=== PATIENT | female | born 1955 | race Caucasian/White ===

== ENCOUNTER 2022-12-28 13:46 | Emergency (ER) | payer MEDICARE, BC ==
[~2022-12-28] VITALS: Ht 162.6 cm; Wt 63.6 kg
[2022-12-28] MEDS ORDERED: ISOVUE-370 76% 100ML VIAL As Ordered ONE (19:00)
[2022-12-28] MEDS ORDERED: NS 1,000 ML IV ONE (19:00)
[2022-12-28 19:31] LABS: BASO # 0.1 10^3/uL (0.0-0.2); BASO % 0.5 % (0.0-1.0); HEMATOCRIT 45.1 % (36.0-47.0); HEMOGLOBIN 14.8 g/dl (12.0-15.5); LYMPH # 2.6 10^3/uL (1.5-5.0); LYMPH % 22.6 % (24.0-44.0); MEAN CORPUSCULAR HEMOGLOBIN 28.5 pg (27.0-33.0); MEAN CORPUSCULAR HGB CONC 32.8 g/dl (32.0-36.5); MEAN CORPUSCULAR VOLUME 86.7 fl (80.0-96.0); MONO % 8.4 % (2.0-8.0); NEUTROPHILS # 7.8 10^3/uL (1.5-8.5); NEUTROPHILS % 68.2 % (36.0-66.0); PLATELET COUNT, AUTOMATED 373 10^3/uL (150-450); WHITE BLOOD COUNT 11.4 10^3/uL (4.0-10.0)
[2022-12-28 19:48] LABS: ERYTHROCYTE SEDIMENTATION RATE 52 mm/hr (0-30)
[2022-12-28 20:01] LABS: ALBUMIN 4.1 G/DL (3.2-5.2); ALKALINE PHOSPHATASE 90 U/L (46-116); ALT/SGPT 25 U/L (7.0-40); AST/SGOT 31 U/L (<34); BILIRUBIN,TOTAL 0.6 MG/DL (0.3-1.2); BLOOD UREA NITROGEN 12 MG/DL (9-23); CALCIUM LEVEL 9.9 MG/DL (8.3-10.6); CARBON DIOXIDE LEVEL 26 MMOL/L (20-31); CHLORIDE LEVEL 103 MMOL/L (98-107); CK-MB VALUE MASS < 1.0 NG/ML (<3.6); CPK CREATINE PHOSPHOKINASE 67 U/L (34-145); CREATININE FOR GFR 0.72 MG/DL (0.55-1.30); FREE THYROXINE INDEX 3.4 % (1.3-4.8); GLOMERULAR FILTRATION RATE > 60.0 (>45); GLUCOSE, FASTING 130 MG/DL (74-106); MB/CK RELATIVE INDEX 1.49 (< OR =4); POTASSIUM SERUM 5.1 MMOL/L (3.5-5.1); SODIUM LEVEL 137 MMOL/L (136-145); T UPTAKE 32.2 % (22.5-37.0); THYROXINE (T4) 10.5 UG/DL (4.5-10.9)
[2022-12-28 21:39] VITALS: BP 168/80; TEMP 98; O2SAT 97
== END 2022-12-28 21:47 | disposition home or self-care (01) ==
LOC: M ED 13:46
DX: N63.12 Unspecified lump in the right breast, upper inner quadrant (principal); E07.9 Disorder of thyroid, unspecified; R49.0 Dysphonia; M89.59 Osteolysis, multiple sites; Z87.442 Personal history of urinary calculi
CPT/HCPCS: 36415; 70491; 71260; 80053; 82550; 82553; 83605; 84436; 84443; 84479; 84484; 85025; 85652; 86140; 99284; Q9967

== ENCOUNTER → 2023-01-18 | Outpatient (CLI) | payer MEDICARE, BC | LOC: M RAD 14:13 | PROVIDERS: ATTEND Internal Medicine Medical Oncology | DX: E04.1 Nontoxic single thyroid nodule (principal) ==

== ENCOUNTER → 2023-02-18 | Outpatient (CLI) | payer MEDICARE, BC ==
[~2023-02-18] MED LIST: ANAS1TAB2; DICY10SO; HYDROXYZ; LIDOCAINE 1% MDV 20ML VIAL As Ordered ONE
[2023-02-18 09:41] VITALS: TEMP 97.4
[2023-02-18 10:22] VITALS: BP 147/72; O2SAT 96
== END ==
LOC: M IRPRO 09:19
PROVIDERS: ATTEND Otolaryngology
DX: E04.2 Nontoxic multinodular goiter (principal)

== ENCOUNTER → 2023-03-07 | Outpatient (CLI) | payer MEDICARE, BC ==
[~2023-03-07] MED LIST changes: -LIDOCAINE 1% MDV 20ML VIAL As Ordered ONE
== END ==
LOC: M ONCR 09:57
PROVIDERS: ATTEND General Practice
DX: C50.111 Malignant neoplasm of central portion of right female breast (principal); C79.51 Secondary malignant neoplasm of bone; Z71.2 Person consulting for explanation of examination or test findings; Z79.2 Long term (current) use of antibiotics; Z79.811 Long term (current) use of aromatase inhibitors; Z80.8 Family history of malignant neoplasm of other organs or systems; Z87.442 Personal history of urinary calculi; Z93.1 Gastrostomy status

== ENCOUNTER 2023-03-20 12:42 | Outpatient (RCR) | payer MEDICARE, BC | END 2023-04-04 | LOC: M ST 12:42 | PROVIDERS: ATTEND General Practice | DX: J38.00 Paralysis of vocal cords and larynx, unspecified (principal); C50.111 Malignant neoplasm of central portion of right female breast ==

== ENCOUNTER → 2023-04-04 | Outpatient (RCR) | payer MEDICARE, BC ==
[~2023-04-04] MED LIST changes: +LORA1TAB23 PO
== END ==
LOC: M ONCR 03-12 10:24
PROVIDERS: ATTEND General Practice
DX: Z51.0 Encounter for antineoplastic radiation therapy (principal); C50.111 Malignant neoplasm of central portion of right female breast

== ENCOUNTER 2023-04-08 09:45 | Outpatient (RCR) | payer MEDICARE, BC ==
[~2023-04-08 09:45] MED LIST changes: -LORA1TAB23 PO
[2023-04-24] MEDS ORDERED: LORA1TAB23 PO (13:23)
== END 2023-05-05 ==
LOC: M ONCR 09:45
PROVIDERS: ATTEND General Practice
DX: Z51.0 Encounter for antineoplastic radiation therapy (principal); C50.111 Malignant neoplasm of central portion of right female breast

== ENCOUNTER → 2023-05-09 | Outpatient (CLI) | payer MEDICARE, BC ==
[~2023-05-09] MED LIST changes: +LORA1TAB23 PO; +PROHANCE 279.3MG/ML 15ML VIAL As Ordered ONE
== END ==
LOC: M RAD 03-19 16:53
PROVIDERS: ATTEND General Practice
DX: C50.111 Malignant neoplasm of central portion of right female breast (principal)
CPT/HCPCS: 70553; A9576

== ENCOUNTER → 2023-05-16 | Outpatient (CLI) | payer MEDICARE, BC ==
[~2023-05-16] MED LIST changes: -PROHANCE 279.3MG/ML 15ML VIAL As Ordered ONE
== END ==
LOC: M ONCR 15:33
PROVIDERS: ATTEND General Practice
DX: C79.51 Secondary malignant neoplasm of bone (principal); Z71.2 Person consulting for explanation of examination or test findings

== ENCOUNTER 2023-06-04 13:00 | Outpatient (RCR) | payer MEDICARE, BC ==
[2023-06-06] MEDS ORDERED: ONDA-83 PEG (10:53)
== END 2023-06-05 ==
LOC: M ONCR 13:00
PROVIDERS: ATTEND General Practice
DX: Z51.0 Encounter for antineoplastic radiation therapy (principal); C79.51 Secondary malignant neoplasm of bone

== ENCOUNTER → 2023-07-09 | Outpatient (CLI) | payer MEDICARE, BC ==
[~2023-07-09] MED LIST changes: -ANAS1TAB2; +ANAS1TAB2 PO; +ONDA-83 PEG; +PHOS1POW PO
== END ==
LOC: M ADAMS 15:05
PROVIDERS: ATTEND Family Medicine
DX: T85.598A Other mechanical complication of other gastrointestinal prosthetic devices, implants and grafts, initial encounter (principal); K11.7 Disturbances of salivary secretion

== ENCOUNTER → 2023-07-16 | Outpatient (REF) | payer MEDICARE, BC ==
[2023-07-16 19:55] LABS: BASO % 0.6 % (0.0-1.0); EOS % 0.3 % (0.0-3.0); HEMATOCRIT 42.2 % (36.0-47.0); HEMOGLOBIN 13.3 g/dl (12.0-15.5); LYMPH # 1.4 10^3/uL (1.5-5.0); LYMPH % 21.3 % (24.0-44.0); MEAN CORPUSCULAR HGB CONC 31.5 g/dl (32.0-36.5); MEAN CORPUSCULAR VOLUME 91.9 fl (80.0-96.0); MONO # 0.4 10^3/uL (0.0-0.8); MONO % 6.3 % (2.0-8.0); NEUTROPHILS # 4.6 10^3/uL (1.5-8.5); NEUTROPHILS % 71.2 % (36.0-66.0); PLATELET COUNT, AUTOMATED 259 10^3/uL (150-450); RED BLOOD COUNT 4.59 10^6/uL (4.00-5.40); WHITE BLOOD COUNT 6.4 10^3/uL (4.0-10.0)
[2023-07-16 20:23] LABS: ALBUMIN 3.5 G/DL (3.2-5.2); ALKALINE PHOSPHATASE 96 U/L (46-116); ALT/SGPT 23 U/L (7.0-40); AST/SGOT 14 U/L (<34); BILIRUBIN,TOTAL 0.5 MG/DL (0.3-1.2); BLOOD UREA NITROGEN 19 MG/DL (9-23); CALCIUM LEVEL 9.1 MG/DL (8.3-10.6); CARBON DIOXIDE LEVEL 32 MMOL/L (20-31); CHLORIDE LEVEL 102 MMOL/L (98-107); CREATININE FOR GFR 0.76 MG/DL (0.55-1.30); GLOMERULAR FILTRATION RATE > 60.0 (>39); GLUCOSE, FASTING 150 MG/DL (74-106); POTASSIUM SERUM 4.7 MMOL/L (3.5-5.1); SODIUM LEVEL 140 MMOL/L (136-145); TOTAL PROTEIN 6.9 G/DL (5.7-8.2)
[2023-07-16 20:41] LABS: CA15-3 ANTIGEN 95.8 U/ML (<32.4)
== END ==
LOC: M LAB REF 15:20
PROVIDERS: ATTEND Internal Medicine Medical Oncology
DX: C50.919 Malignant neoplasm of unspecified site of unspecified female breast (principal)

== ENCOUNTER → 2023-08-20 | Outpatient (CLI) | payer MEDICARE, BC | LOC: M RAD 11:00 | PROVIDERS: ATTEND Otolaryngology | DX: E04.2 Nontoxic multinodular goiter (principal) ==

== ENCOUNTER → 2023-10-03 | Outpatient (CLI) | payer MEDICARE, BC ==
[2023-10-03 18:34] LABS: BASO # 0.1 10^3/uL (0.0-0.2); BASO % 0.7 % (0.0-1.0); EOS # 0.1 10^3/uL (0.0-0.5); EOS % 0.7 % (0.0-3.0); HEMATOCRIT 42.1 % (36.0-47.0); HEMOGLOBIN 13.3 g/dl (12.0-15.5); LYMPH # 1.4 10^3/uL (1.5-5.0); LYMPH % 21.2 % (24.0-44.0); MEAN CORPUSCULAR HEMOGLOBIN 29.9 pg (27.0-33.0); MEAN CORPUSCULAR HGB CONC 31.6 g/dl (32.0-36.5); MEAN CORPUSCULAR VOLUME 94.6 fl (80.0-96.0); MONO # 0.5 10^3/uL (0.0-0.8); MONO % 7.4 % (2.0-8.0); NEUTROPHILS # 4.7 10^3/uL (1.5-8.5); NEUTROPHILS % 69.9 % (36.0-66.0); PLATELET COUNT, AUTOMATED 228 10^3/uL (150-450); RED BLOOD COUNT 4.45 10^6/uL (4.00-5.40); WHITE BLOOD COUNT 6.7 10^3/uL (4.0-10.0)
[2023-10-03 18:37] LABS: ALBUMIN 3.9 G/DL (3.2-5.2); ALKALINE PHOSPHATASE 109 U/L (46-116); ALT/SGPT 24 U/L (7.0-40); AST/SGOT 13 U/L (<34); BILIRUBIN,TOTAL 0.6 MG/DL (0.3-1.2); BLOOD UREA NITROGEN 22 MG/DL (9-23); CALCIUM LEVEL 10.1 MG/DL (8.3-10.6); CARBON DIOXIDE LEVEL 31 MMOL/L (20-31); CHLORIDE LEVEL 103 MMOL/L (98-107); CREATININE FOR GFR 0.66 MG/DL (0.55-1.30); GLOMERULAR FILTRATION RATE > 60.0 (>39); GLUCOSE, FASTING 85 MG/DL (74-106); POTASSIUM SERUM 4.6 MMOL/L (3.5-5.1); SODIUM LEVEL 140 MMOL/L (136-145); TOTAL PROTEIN 7.2 G/DL (5.7-8.2)
[2023-10-03 18:54] LABS: CA15-3 ANTIGEN 72.7 U/ML (<32.4)
== END ==
LOC: M LABDRWAD 11:46
PROVIDERS: ATTEND Internal Medicine Medical Oncology
DX: C50.919 Malignant neoplasm of unspecified site of unspecified female breast (principal)

== ENCOUNTER → 2023-10-04 | Outpatient (CLI) | payer MEDICARE, BC ==
[~2023-10-04] MED LIST changes: +ISOVUE-370 76% 100ML VIAL As Ordered ONE
== END ==
LOC: M RAD 15:02
PROVIDERS: ATTEND Internal Medicine Medical Oncology
DX: C50.111 Malignant neoplasm of central portion of right female breast (principal); C79.51 Secondary malignant neoplasm of bone; K57.30 Diverticulosis of large intestine without perforation or abscess without bleeding; D25.9 Leiomyoma of uterus, unspecified; K80.20 Calculus of gallbladder without cholecystitis without obstruction; Z93.1 Gastrostomy status
CPT/HCPCS: 71260; 74177; Q9967

== ENCOUNTER → 2023-11-06 | Outpatient (REF) | payer MEDICARE, BC ==
[~2023-11-06] MED LIST changes: -ISOVUE-370 76% 100ML VIAL As Ordered ONE
[2023-11-06 18:51] LABS: ALBUMIN 3.5 G/DL (3.2-5.2); ALKALINE PHOSPHATASE 107 U/L (46-116); ALT/SGPT 24 U/L (7.0-40); AST/SGOT 14 U/L (<34); BILIRUBIN,TOTAL 0.6 MG/DL (0.3-1.2); BLOOD UREA NITROGEN 25 MG/DL (9-23); CALCIUM LEVEL 9.6 MG/DL (8.3-10.6); CARBON DIOXIDE LEVEL 34 MMOL/L (20-31); CHLORIDE LEVEL 105 MMOL/L (98-107); GLOMERULAR FILTRATION RATE > 60.0 (>39); GLUCOSE, FASTING 99 MG/DL (74-106); POTASSIUM SERUM 4.4 MMOL/L (3.5-5.1); SODIUM LEVEL 142 MMOL/L (136-145); TOTAL PROTEIN 6.6 G/DL (5.7-8.2)
[2023-11-06 18:57] LABS: BASO % 0.5 % (0.0-1.0); EOS # 0.1 10^3/uL (0.0-0.5); HEMOGLOBIN 12.8 g/dl (12.0-15.5); LYMPH # 1.1 10^3/uL (1.5-5.0); LYMPH % 18.3 % (24.0-44.0); MEAN CORPUSCULAR HEMOGLOBIN 29.8 pg (27.0-33.0); MEAN CORPUSCULAR HGB CONC 31.2 g/dl (32.0-36.5); MEAN CORPUSCULAR VOLUME 95.6 fl (80.0-96.0); MONO # 0.6 10^3/uL (0.0-0.8); MONO % 9.9 % (2.0-8.0); NEUTROPHILS % 70.1 % (36.0-66.0); PLATELET COUNT, AUTOMATED 201 10^3/uL (150-450); RED BLOOD COUNT 4.29 10^6/uL (4.00-5.40); WHITE BLOOD COUNT 5.7 10^3/uL (4.0-10.0)
[2023-11-06 20:03] LABS: CA15-3 ANTIGEN 54.4 U/ML (<32.4)
== END ==
LOC: M LABDRWAD 17:26
PROVIDERS: ATTEND Internal Medicine Medical Oncology
DX: C50.919 Malignant neoplasm of unspecified site of unspecified female breast (principal)

== ENCOUNTER → 2023-12-13 | Outpatient (CLI) | payer MEDICARE, BC ==
[2023-12-13 15:40] LABS: BASO % 0.5 % (0.0-1.0); EOS # 0.1 10^3/uL (0.0-0.5); HEMATOCRIT 41.3 % (36.0-47.0); HEMOGLOBIN 13.1 g/dl (12.0-15.5); LYMPH # 1.2 10^3/uL (1.5-5.0); LYMPH % 15.5 % (24.0-44.0); MEAN CORPUSCULAR HEMOGLOBIN 29.4 pg (27.0-33.0); MEAN CORPUSCULAR HGB CONC 31.7 g/dl (32.0-36.5); MEAN CORPUSCULAR VOLUME 92.6 fl (80.0-96.0); MONO # 0.3 10^3/uL (0.0-0.8); MONO % 4.4 % (2.0-8.0); NEUTROPHILS # 6.1 10^3/uL (1.5-8.5); NEUTROPHILS % 78.5 % (36.0-66.0); PLATELET COUNT, AUTOMATED 205 10^3/uL (150-450); RED BLOOD COUNT 4.46 10^6/uL (4.00-5.40); WHITE BLOOD COUNT 7.8 10^3/uL (4.0-10.0)
[2023-12-13 16:12] LABS: ALBUMIN 3.8 G/DL (3.2-5.2); ALKALINE PHOSPHATASE 122 U/L (46-116); ALT/SGPT 27 U/L (7.0-40); AST/SGOT 15 U/L (<34); BILIRUBIN,TOTAL 0.6 MG/DL (0.3-1.2); BLOOD UREA NITROGEN 23 MG/DL (9-23); CALCIUM LEVEL 9.6 MG/DL (8.3-10.6); CARBON DIOXIDE LEVEL 32 MMOL/L (20-31); CHLORIDE LEVEL 102 MMOL/L (98-107); CREATININE FOR GFR 0.67 MG/DL (0.55-1.30); GLOMERULAR FILTRATION RATE > 60.0 (>39); GLUCOSE, FASTING 121 MG/DL (74-106); POTASSIUM SERUM 4.3 MMOL/L (3.5-5.1); SODIUM LEVEL 138 MMOL/L (136-145); TOTAL PROTEIN 7.3 G/DL (5.7-8.2)
[2023-12-13 16:29] LABS: CA15-3 ANTIGEN 51.2 U/ML (<32.4)
== END ==
LOC: M PLALAB 12:51
PROVIDERS: ATTEND Internal Medicine Medical Oncology
DX: C50.919 Malignant neoplasm of unspecified site of unspecified female breast (principal)

== ENCOUNTER 2024-01-12 12:22 | Emergency (ER) | payer MEDICARE, BC ==
[~2024-01-12] VITALS: Ht 160 cm; Wt 61.2 kg
[2024-01-12 13:53] VITALS: BP 144/64; TEMP 97.4; O2SAT 98
== END 2024-01-12 15:50 | disposition home or self-care (01) ==
LOC: M ED 12:22
DX: T85.528A Displacement of other gastrointestinal prosthetic devices, implants and grafts, initial encounter (principal); Z85.3 Personal history of malignant neoplasm of breast; Z79.899 Other long term (current) drug therapy

== ENCOUNTER → 2024-03-19 | Outpatient (REF) | payer MEDICARE, BC ==
[2024-03-19 19:21] LABS: BASO % 0.5 % (0.0-1.0); EOS % 0.3 % (0.0-3.0); HEMATOCRIT 41.5 % (36.0-47.0); HEMOGLOBIN 13.1 g/dl (12.0-15.5); LYMPH # 1.3 10^3/uL (1.5-5.0); LYMPH % 22.1 % (24.0-44.0); MEAN CORPUSCULAR HEMOGLOBIN 29.4 pg (27.0-33.0); MEAN CORPUSCULAR HGB CONC 31.6 g/dl (32.0-36.5); MEAN CORPUSCULAR VOLUME 93.3 fl (80.0-96.0); MONO # 0.5 10^3/uL (0.0-0.8); MONO % 8.3 % (2.0-8.0); NEUTROPHILS # 4.1 10^3/uL (1.5-8.5); NEUTROPHILS % 68.5 % (36.0-66.0); PLATELET COUNT, AUTOMATED 203 10^3/uL (150-450); RED BLOOD COUNT 4.45 10^6/uL (4.00-5.40)
[2024-03-19 19:41] LABS: ALBUMIN 3.8 G/DL (3.2-5.2); ALKALINE PHOSPHATASE 104 U/L (35-104); ALT/SGPT 19 U/L (7.0-40); AST/SGOT 14 U/L (<34); BILIRUBIN,TOTAL 0.5 MG/DL (0.3-1.2); BLOOD UREA NITROGEN 27 MG/DL (9-23); CALCIUM LEVEL 10.2 MG/DL (8.3-10.6); CARBON DIOXIDE LEVEL 34 MMOL/L (20-31); CHLORIDE LEVEL 104 MMOL/L (98-107); CREATININE FOR GFR 0.71 MG/DL (0.55-1.30); GLOMERULAR FILTRATION RATE > 60.0 (>39); GLUCOSE, FASTING 101 MG/DL (74-106); POTASSIUM SERUM 4.6 MMOL/L (3.5-5.1); SODIUM LEVEL 142 MMOL/L (136-145); TOTAL PROTEIN 7.4 G/DL (5.7-8.2)
[2024-03-19 20:02] LABS: CA15-3 ANTIGEN 66.6 U/ML (<32.4)
== END ==
LOC: M LABDRWAD 17:36
PROVIDERS: ATTEND Internal Medicine Medical Oncology
DX: C50.919 Malignant neoplasm of unspecified site of unspecified female breast (principal)

== ENCOUNTER → 2024-03-24 | Outpatient (CLI) | payer MEDICARE, BC ==
[~2024-03-24] MED LIST changes: +ISOVUE-370 76% 100ML VIAL As Ordered ONE
== END ==
LOC: M RAD 12:27
PROVIDERS: ATTEND Internal Medicine Medical Oncology
DX: C50.919 Malignant neoplasm of unspecified site of unspecified female breast (principal)
CPT/HCPCS: 71260; 74177; Q9967

== ENCOUNTER → 2024-07-17 | Outpatient (REF) | payer MEDICARE, BC ==
[~2024-07-17] MED LIST changes: -ISOVUE-370 76% 100ML VIAL As Ordered ONE
[2024-07-17 14:17] LABS: BASO % 0.5 % (0.0-1.0); EOS % 0.2 % (0.0-3.0); HEMATOCRIT 38.9 % (36.0-47.0); HEMOGLOBIN 12.3 g/dl (12.0-15.5); LYMPH # 1.3 10^3/uL (1.5-5.0); LYMPH % 22.2 % (24.0-44.0); MEAN CORPUSCULAR HEMOGLOBIN 29.8 pg (27.0-33.0); MEAN CORPUSCULAR HGB CONC 31.6 g/dl (32.0-36.5); MEAN CORPUSCULAR VOLUME 94.2 fl (80.0-96.0); MONO # 0.4 10^3/uL (0.0-0.8); MONO % 7.7 % (2.0-8.0); NEUTROPHILS # 3.9 10^3/uL (1.5-8.5); NEUTROPHILS % 69.2 % (36.0-66.0); PLATELET COUNT, AUTOMATED 202 10^3/uL (150-450); RED BLOOD COUNT 4.13 10^6/uL (4.00-5.40); WHITE BLOOD COUNT 5.7 10^3/uL (4.0-10.0)
[2024-07-17 14:34] LABS: ALBUMIN 3.6 G/DL (3.2-5.2); ALKALINE PHOSPHATASE 103 U/L (35-104); ALT/SGPT 19 U/L (7.0-40); AST/SGOT 14 U/L (<34); BILIRUBIN,TOTAL 0.6 MG/DL (0.3-1.2); BLOOD UREA NITROGEN 26 MG/DL (9-23); CALCIUM LEVEL 9.4 MG/DL (8.3-10.6); CARBON DIOXIDE LEVEL 32 MMOL/L (20-31); CHLORIDE LEVEL 103 MMOL/L (98-107); CREATININE FOR GFR 0.73 MG/DL (0.55-1.30); GLOMERULAR FILTRATION RATE > 60.0 (>39); GLUCOSE, FASTING 113 MG/DL (74-106); POTASSIUM SERUM 4.5 MMOL/L (3.5-5.1); SODIUM LEVEL 142 MMOL/L (136-145); TOTAL PROTEIN 7.1 G/DL (5.7-8.2)
[2024-07-17 14:53] LABS: CA15-3 ANTIGEN 77.2 U/ML (<32.4)
== END ==
LOC: M LABDRWAD 13:08
PROVIDERS: ATTEND Internal Medicine Medical Oncology
DX: C50.919 Malignant neoplasm of unspecified site of unspecified female breast (principal)

== ENCOUNTER → 2024-09-15 | Outpatient (REF) | payer MEDICARE, BC ==
[~2024-09-15] MED LIST changes: +NOXI1TAB PO
[2024-09-15 17:56] LABS: HEMATOCRIT 38.6 % (36.0-47.0); HEMOGLOBIN 12.3 g/dl (12.0-15.5); MEAN CORPUSCULAR HEMOGLOBIN 30.1 pg (27.0-33.0); MEAN CORPUSCULAR HGB CONC 31.9 g/dl (32.0-36.5); MEAN CORPUSCULAR VOLUME 94.6 fl (80.0-96.0); PLATELET COUNT, AUTOMATED 214 10^3/uL (150-450); RED BLOOD COUNT 4.08 10^6/uL (4.00-5.40); WHITE BLOOD COUNT 5.8 10^3/uL (4.0-10.0)
[2024-09-15 18:10] LABS: ALBUMIN 3.7 G/DL (3.2-5.2); ALKALINE PHOSPHATASE 126 U/L (35-104); ALT/SGPT 22 U/L (7.0-40); AST/SGOT 17 U/L (<34); BILIRUBIN,TOTAL 0.5 MG/DL (0.3-1.2); BLOOD UREA NITROGEN 29 MG/DL (9-23); C REACTIVE PROTEIN QUANTITATIV < 0.50 MG/DL (<1.0); CALCIUM LEVEL 9.5 MG/DL (8.3-10.6); CARBON DIOXIDE LEVEL 32 MMOL/L (20-31); CHLORIDE LEVEL 100 MMOL/L (98-107); CREATININE FOR GFR 0.72 MG/DL (0.55-1.30); GLOMERULAR FILTRATION RATE 89.3 (>39); GLUCOSE, FASTING 115 MG/DL (74-106); POTASSIUM SERUM 4.4 MMOL/L (3.5-5.1); SODIUM LEVEL 141 MMOL/L (136-145); TOTAL PROTEIN 7.1 G/DL (5.7-8.2)
[2024-09-15 18:11] LABS: FERRITIN 84.8 NG/ML (7.3-270.7); FOLATE 18.41 NG/ML (>5.4); THYROID STIMULATING HORMONE 0.964 uIU/ML (0.55-4.78); VITAMIN B12 LEVEL 1125 PG/ML (211-911)
[2024-09-15 18:12] LABS: FREE T4 1.15 NG/DL (0.89-1.76)
[2024-09-15 18:27] LABS: HEMOGLOBIN A1c 5.3 % (4.0-6.0)
== END ==
LOC: M SFHCADAM 14:23
PROVIDERS: ATTEND Family Medicine
DX: R63.4 Abnormal weight loss (principal); D50.9 Iron deficiency anemia, unspecified

== ENCOUNTER 2024-11-30 10:08 | Outpatient (RCR) | payer MEDICARE, BC | END 2024-12-03 | LOC: M ST 10:08 | PROVIDERS: ATTEND Family Medicine | DX: R13.10 Dysphagia, unspecified (principal) ==

== ENCOUNTER 2025-01-06 16:09 | Emergency (ER) | payer MEDICARE, BC ==
[~2025-01-06] VITALS: Ht 160 cm; Wt 58.4 kg
[2025-01-06 17:22] LABS: BASO # 0.0 10^3/uL (0.0-0.2); BASO % 0.5 % (0.0-1.0); EOS # 0.0 10^3/uL (0.0-0.5); EOS % 0.0 % (0.0-3.0); LYMPH # 1.4 10^3/uL (1.5-5.0); LYMPH % 19.6 % (24.0-44.0); MONO # 0.6 10^3/uL (0.0-0.8); MONO % 7.8 % (2.0-8.0); NEUTROPHILS # 5.2 10^3/uL (1.5-8.5); NEUTROPHILS % 71.8 % (36.0-66.0); PLATELET COUNT, AUTOMATED 238 10^3/uL (150-450)
[2025-01-06 17:46] VITALS: TEMP 96.8
[2025-01-06 17:47] LABS: ALT/SGPT 279.0 U/L (7.0-40); AST/SGOT 71.0 U/L (<34); CALCIUM LEVEL 10.0 MG/DL (8.3-10.6); CARBON DIOXIDE LEVEL 30.0 MMOL/L (20-31); CHLORIDE LEVEL 98.0 MMOL/L (98-107); CREATININE FOR GFR 0.77 MG/DL (0.55-1.30); GLOMERULAR FILTRATION RATE 82.4 (>39); POTASSIUM SERUM 4.7 MMOL/L (3.5-5.1); SODIUM LEVEL 140.0 MMOL/L (136-145)
[2025-01-06] MEDS: TETRACAINE 0.5% OPHTH SOLN 4ML OD ONE (21:44)
[2025-01-06 23:00] VITALS: BP 128/61
[2025-01-06 23:14] VITALS: O2SAT 98
== END 2025-01-06 23:33 | disposition left against medical advice (07) ==
LOC: M ED 16:09
DX: H53.131 Sudden visual loss, right eye (principal); I10 Essential (primary) hypertension; C50.919 Malignant neoplasm of unspecified site of unspecified female breast; Z79.899 Other long term (current) drug therapy; Z79.52 Long term (current) use of systemic steroids; Z53.9 Procedure and treatment not carried out, unspecified reason

== ENCOUNTER 2025-01-08 11:08 | Emergency (ER) | payer MEDICARE, BC ==
[~2025-01-08] VITALS: Ht 160 cm; Wt 56.9 kg
[2025-01-08 11:47] VITALS: TEMP 97.6
[2025-01-08] MEDS ORDERED: PROHANCE 279.3MG/ML 15ML VIAL As Ordered ONE (13:36)
[2025-01-08 13:37] LABS: BASO # 0.1 10^3/uL (0.0-0.2); BASO % 0.7 % (0.0-1.0); EOS # 0.0 10^3/uL (0.0-0.5); EOS % 0.1 % (0.0-3.0); LYMPH # 1.6 10^3/uL (1.5-5.0); LYMPH % 20.4 % (24.0-44.0); MONO # 0.5 10^3/uL (0.0-0.8); MONO % 6.4 % (2.0-8.0); NEUTROPHILS # 5.5 10^3/uL (1.5-8.5); NEUTROPHILS % 72.1 % (36.0-66.0); PLATELET COUNT, AUTOMATED 237 10^3/uL (150-450)
[2025-01-08 13:53] LABS: ERYTHROCYTE SEDIMENTATION RATE 66 mm/hr (0-30)
[2025-01-08 14:01] LABS: INR 0.93
[2025-01-08 14:06] LABS: CALCIUM LEVEL 10.1 MG/DL (8.3-10.6); CARBON DIOXIDE LEVEL 27.0 MMOL/L (20-31); CHLORIDE LEVEL 102.0 MMOL/L (98-107); CREATININE FOR GFR 0.76 MG/DL (0.55-1.30); GLOMERULAR FILTRATION RATE 83.7 (>39); POTASSIUM SERUM 4.5 MMOL/L (3.5-5.1); SODIUM LEVEL 140.0 MMOL/L (136-145)
[2025-01-08] MEDS: methylPREDNISolone 1,000 MG, VIAL MATE ADAPTER 1 EACH in NS 100 ML IV ONE (16:11)
[2025-01-08] MEDS ORDERED: PRED15SO24 PO (16:17)
[2025-01-08 17:00] VITALS: BP 117/58; O2SAT 99
== END 2025-01-08 17:24 | disposition home or self-care (01) ==
LOC: M ED 11:08
DX: H49 Paralytic strabismus (principal); Z79.52 Long term (current) use of systemic steroids; Z79.899 Other long term (current) drug therapy
CPT/HCPCS: 70543; 70546; 80048; 85025; 85610; 85652; 85730; 96365; 99284; A9576; J2919

== ENCOUNTER → 2025-01-27 | Outpatient (CLI) | payer MEDICARE, BC ==
[~2025-01-27] MED LIST changes: +PRED15SO24 PO
[2025-01-27 17:36] LABS: BASO # 0.0 10^3/uL (0.0-0.2); BASO % 0.1 % (0.0-1.0); EOS # 0.0 10^3/uL (0.0-0.5); EOS % 0.1 % (0.0-3.0); LYMPH # 2.2 10^3/uL (1.5-5.0); LYMPH % 15.3 % (24.0-44.0); MONO # 1.4 10^3/uL (0.0-0.8); MONO % 9.5 % (2.0-8.0); NEUTROPHILS # 10.8 10^3/uL (1.5-8.5); NEUTROPHILS % 74.8 % (36.0-66.0); PLATELET COUNT, AUTOMATED 289 10^3/uL (150-450)
[2025-01-27 18:03] LABS: ALT/SGPT 39 U/L (7.0-40); AST/SGOT 19 U/L (<34); CALCIUM LEVEL 9.5 MG/DL (8.3-10.6); CARBON DIOXIDE LEVEL 31 MMOL/L (20-31); CHLORIDE LEVEL 97 MMOL/L (98-107); CREATININE FOR GFR 0.69 MG/DL (0.55-1.30); GLOMERULAR FILTRATION RATE > 90.0 (>39); POTASSIUM SERUM 3.8 MMOL/L (3.5-5.1); SODIUM LEVEL 138 MMOL/L (136-145)
[2025-01-27 18:04] LABS: RHEUMATOID FACTOR QUANT < 3.5 IU/ML (<14)
[2025-01-27 18:05] LABS: THYROXINE (T4) 7.1 UG/DL (4.5-10.9)
[2025-01-27 18:07] LABS: T UPTAKE 36.3 % (22.5-37.0)
[2025-01-27 18:20] LABS: ERYTHROCYTE SEDIMENTATION RATE 34 mm/hr (0-30)
[2025-02-01 13:57] LABS: ANTI SMITH(Sm) AB <1.0 NEG AI (<1.0 NEG); ANTI-U1 RNP AB <1.0 NEG AI (<1.0 NEG); SSA SJOGRENS A <1.0 NEG AI (<1.0 NEG); SSB SJOGRENS B <1.0 NEG AI (<1.0 NEG)
[2025-02-01 16:32] LABS: ANGIOTENSIN 1 CONVERTING ENZYM 29 U/L (9-67)
[2025-02-02 19:12] LABS: LYME TOTAL ANTIBODY CIA <= 0.90 Index (<=0.90)
[2025-02-03 00:32] LABS: ANTI-HISTONE ANTIBODIES < 1.0 U (<1.0)
[2025-02-03 10:57] LABS: ANTI DS-DNA AB Positive (Negative)
[2025-02-03 11:31] LABS: ANTI DS-DNA TITER 1:10 titer (<1:10)
== END ==
LOC: M PLALAB 16:33
PROVIDERS: ATTEND Psychiatry & Neurology Neurology
DX: L93.0 Discoid lupus erythematosus (principal); D86.9 Sarcoidosis, unspecified; E07.9 Disorder of thyroid, unspecified; I77.6 Arteritis, unspecified

== ENCOUNTER 2025-01-29 12:23 | Emergency (ER) | payer MEDICARE, BC ==
[~2025-01-29] VITALS: Ht 160 cm; Wt 55.7 kg
[2025-01-29 12:35] VITALS: BP 140/72; TEMP 97.9; O2SAT 97
== END 2025-01-29 13:51 | disposition left against medical advice (07) ==
LOC: M ED 12:23
DX: Z53.21 Procedure and treatment not carried out due to patient leaving prior to being seen by health care provider (principal)

== ENCOUNTER → 2025-03-15 | Outpatient (REF) | payer MEDICARE, BC ==
[~2025-03-15] MED LIST changes: +LORA2CON5 PO
[2025-03-15 18:48] LABS: BASO # 0.1 10^3/uL (0.0-0.2); BASO % 0.7 % (0.0-1.0); EOS # 0.0 10^3/uL (0.0-0.5); EOS % 0.1 % (0.0-3.0); LYMPH # 2.5 10^3/uL (1.5-5.0); LYMPH % 29.2 % (24.0-44.0); MONO # 0.8 10^3/uL (0.0-0.8); MONO % 9.4 % (2.0-8.0); NEUTROPHILS # 5.2 10^3/uL (1.5-8.5); NEUTROPHILS % 60.4 % (36.0-66.0); PLATELET COUNT, AUTOMATED 292 10^3/uL (150-450)
[2025-03-15 18:54] LABS: ALT/SGPT 57.0 U/L (7.0-40); AST/SGOT 36.0 U/L (<34); CALCIUM LEVEL 9.7 MG/DL (8.3-10.6); CARBON DIOXIDE LEVEL 32.0 MMOL/L (20-31); CHLORIDE LEVEL 99.0 MMOL/L (98-107); CREATININE FOR GFR 0.74 MG/DL (0.55-1.30); GLOMERULAR FILTRATION RATE 86.4 (>39); POTASSIUM SERUM 5.0 MMOL/L (3.5-5.1); SODIUM LEVEL 139.0 MMOL/L (136-145)
[2025-03-15 19:10] LABS: CA15-3 ANTIGEN 175.7 U/ML (<32.4)
== END ==
LOC: M LABDRWAD 17:11 → M LAB REF 17:11
PROVIDERS: ATTEND Internal Medicine Medical Oncology
DX: C50.911 Malignant neoplasm of unspecified site of right female breast (principal)

== ENCOUNTER → 2025-03-18 | Outpatient (CLI) | payer MEDICARE, BC ==
[~2025-03-18] MED LIST changes: +ISOVUE-300 61% 100 ML VIAL IV SCH; +LIDOCAINE 1% MDV 20 ML VIAL SC SCH; +LIDOCAINE 2% JELLY 6 ML SYRINGE TOP SCH; +SODIUM CHLORIDE 0.9% 1000 ML XX SCH
[2025-03-18 12:55] VITALS: BP 136/66; TEMP 98.6; O2SAT 99
== END ==
LOC: M IRPRO 12:40
PROVIDERS: ATTEND Radiology Diagnostic Radiology
DX: Z93.1 Gastrostomy status (principal); Z53.9 Procedure and treatment not carried out, unspecified reason

== ENCOUNTER → 2025-03-25 | Outpatient (CLI) | payer MEDICARE, BC ==
[~2025-03-25] MED LIST changes: -ISOVUE-300 61% 100 ML VIAL IV SCH; +ISOVUE-370 76% 100 ML VIAL ONE; -LIDOCAINE 1% MDV 20 ML VIAL SC SCH; -LIDOCAINE 2% JELLY 6 ML SYRINGE TOP SCH; -SODIUM CHLORIDE 0.9% 1000 ML XX SCH
== END ==
LOC: M PLAIMG 14:09
PROVIDERS: ATTEND Internal Medicine Medical Oncology
DX: C50.919 Malignant neoplasm of unspecified site of unspecified female breast (principal); R91.8 Other nonspecific abnormal finding of lung field; C79.51 Secondary malignant neoplasm of bone; E27.9 Disorder of adrenal gland, unspecified; K76.89 Other specified diseases of liver; K80.20 Calculus of gallbladder without cholecystitis without obstruction; N28.1 Cyst of kidney, acquired; K57.30 Diverticulosis of large intestine without perforation or abscess without bleeding; K42.9 Umbilical hernia without obstruction or gangrene
CPT/HCPCS: 71260; 74177; Q9967

== ENCOUNTER → 2025-04-05 | Outpatient (CLI) | payer MEDICARE, BC ==
[~2025-04-05] MED LIST changes: -ISOVUE-370 76% 100 ML VIAL ONE
== END ==
LOC: M ONCR 14:32
PROVIDERS: ATTEND General Practice
DX: C79.51 Secondary malignant neoplasm of bone (principal); C50.111 Malignant neoplasm of central portion of right female breast; H54.61 Unqualified visual loss, right eye, normal vision left eye; Z79.811 Long term (current) use of aromatase inhibitors; Z79.899 Other long term (current) drug therapy; Z17.0 Estrogen receptor positive status [ER+]; Z17.21 Progesterone receptor positive status; Z17.32 Human epidermal growth factor receptor 2 negative status; Z92.3 Personal history of irradiation

== ENCOUNTER → 2025-04-13 | Outpatient (REF) | payer MEDICARE, BC ==
[2025-04-13 18:18] LABS: ALT/SGPT 44.0 U/L (7.0-40); AST/SGOT 34.0 U/L (<34); CALCIUM LEVEL 9.6 MG/DL (8.3-10.6); CARBON DIOXIDE LEVEL 33.0 MMOL/L (20-31); CHLORIDE LEVEL 101.0 MMOL/L (98-107); CREATININE FOR GFR 0.75 MG/DL (0.55-1.30); GLOMERULAR FILTRATION RATE 85.1 (>39); POTASSIUM SERUM 4.6 MMOL/L (3.5-5.1); SODIUM LEVEL 141.0 MMOL/L (136-145)
[2025-04-13 18:23] LABS: BASO # 0.0 10^3/uL (0.0-0.2); BASO % 0.4 % (0.0-1.0); EOS # 0.0 10^3/uL (0.0-0.5); EOS % 0.0 % (0.0-3.0); LYMPH # 2.4 10^3/uL (1.5-5.0); LYMPH % 26.1 % (24.0-44.0); MONO # 0.6 10^3/uL (0.0-0.8); MONO % 6.3 % (2.0-8.0); NEUTROPHILS # 6.0 10^3/uL (1.5-8.5); NEUTROPHILS % 67.0 % (36.0-66.0); PLATELET COUNT, AUTOMATED 313 10^3/uL (150-450)
[2025-04-13 18:38] LABS: CA15-3 ANTIGEN 197.0 U/ML (<32.4)
== END ==
LOC: M LABDRWAD 17:31
PROVIDERS: ATTEND Internal Medicine Medical Oncology
DX: C50.919 Malignant neoplasm of unspecified site of unspecified female breast (principal)

== ENCOUNTER → 2025-04-28 | Outpatient (CLI) | payer MEDICARE, BC | LOC: M ONCM 09:17 | PROVIDERS: ATTEND Dietitian, Registered | DX: Z71.3 Dietary counseling and surveillance (principal); C50.919 Malignant neoplasm of unspecified site of unspecified female breast; C79.51 Secondary malignant neoplasm of bone; Z68.22 Body mass index [BMI] 22.0-22.9, adult ==